=== PATIENT | female | born 1985 | race Two or more races ===

== ENCOUNTER 2020-12-07 22:31 | Emergency (ER) | payer BC, SELFPAY ==
[~2020-12-07] VITALS: Ht 167.6 cm; Wt 60.3 kg
[2020-12-07 22:46] VITALS: BP 138/103
--- NOTE | 2020-12-07 22:56 | NUR ---
PATIENT AMBULATED TO BED 7 WITH A URINE CUP FOR COLLECTION
--- NOTE | 2020-12-07 23:01 | NUR ---
35 YO/F BIB SELF W C/O RLQ PAIN X4 DAYS DULL/STINGING, NON RADIATING, CONSTANT W WORSENING EPISODES TO 6/10, + NAUSEA, +BLOATING REPORTS "STOMACH IS BLOATED LOOKS LIKE I AM 2 MONTHS AND MY STOMACH IS NOT NORMALLY THIS BIG." PT REPORTS PAIN WORSENS W MOVEMENT OR TOUCH. PT DENIES FEVERS, V/D, CONSTIPATION OR URINARY PROBLEMS. PT TOOK 60 ML OF PEPTO @ 1030 TODAY. BOWEL SOUNDS PRESENT, ABDOMEN ROUND, SOFT, TENDER TO TOUCH AT RLQ. PT SITTING IN BED W GOWN ON. VSS. BREATHING EVEN AND UNLABORED. NAD NOTED, WILL CONTINUE TO MONITOR. PMH:TOTAL THYROIDECTOMY, C-SEC 2018, HEMORROID SURGEY 2010, MIGRAINES NKA
--- NOTE | 2020-12-07 23:02 | NUR ---
PT REPORTS SHE DOES NOT WANT ANY PAIN MEDICATION AT THIS TIME.
--- NOTE | 2020-12-07 23:10 | NUR ---
PT AMBULATED TO BATHROOM W STEADY GAIT. PROVIDED URINE SAMPLE, SAMPLE SENT TO LAB.
[2020-12-07 23:54] LABS: BASOPHILS % (AUTO) 0.3 % (0.0-2.0); EOSINOPHILS # (AUTO) 0.2 K/uL (0-0.4); HEMATOCRIT 34.9 % (36-48); HEMOGLOBIN 11.7 g/dL (12.0-16.0); LYMPHOCYTES # (AUTO) 3.1 K/uL (2.5-16.5); LYMPHOCYTES % (AUTO) 26.4 % (20.5-51.1); MEAN CORPUSCULAR HEMOGLOBIN 29 pg (27-31); MEAN CORPUSCULAR HGB CONC 33 g/dL (33-37); MEAN CORPUSCULAR VOLUME 87.6 fL (80-94); MONOCYTES % (AUTO) 8.6 % (1.7-9.3); NEUTROPHILS # (AUTO) 7.4 K/uL (1.8-7.7); NEUTROPHILS % (AUTO) 62.7 % (42.2-75.2); PLATELET COUNT (AUTO) 334 K/uL (140-450); RED BLOOD CELL COUNT(AUTO) 3.98 MIL/uL (4.20-5.40); RED CELL DISTRIBUTION WIDTH 12.5 % (11.6-13.7); WHITE BLOOD COUNT (AUTO) 11.8 K/uL (4.8-10.8)
[2020-12-07 23:54] LABS: APPEARANCE,URINE CLEAR (CLEAR); BILIRUBIN,URINE NEGATIVE (NEGATIVE); BLOOD, URINE 1+ (NEGATIVE); COLOR,URINE YELLOW (YELLOW); LEUKOCYTE ESTERASE ,URINE NEGATIVE (NEGATIVE); NITRITE, URINE NEGATIVE (NEGATIVE); PH,URINE 6.5 (5.0-9.0); UGLUCOSE NEGATIVE (NEGATIVE)
--- NOTE | 2020-12-07 23:54 | NUR ---
PT REFUSED ZOFRAN OR MORPHINE AT THIS TIME. PT WILL CONTACT NURSE IF PT WANTS THE MEDICATION AT ANOTHER TIME.
[2020-12-07] MEDS: NACL 0.9% 1,000 ML IV SCH (23:58)
[2020-12-07] MEDS: MORPHINE SULFATE 2 MG/ML SYR IVP ONE (23:59)
[2020-12-07] MEDS: ONDANSETRON 4 MG/2 ML VIAL IVP ONE (23:59)
[2020-12-07] MEDS: NACL 0.9% 1,000 ML IV ONE (23:59)
[2020-12-08 00:09] LABS: ALBUMIN 3.9 g/dL (3.4-5.0); CARBON DIOXIDE 25.7 mmol/L (21-32); CREATININE 0.6 mg/dL (0.6-1.3); POTASSIUM 3.7 mmol/L (3.5-5.1); TOTAL BILIRUBIN 0.3 mg/dL (0.0-1.0)
[2020-12-08 00:13] LABS: RBC,URINE 0-5 /HPF (0-5); WBC,URINE 0-5 /HPF (0-5)
--- NOTE | 2020-12-08 00:41 | NUR ---
PT TAKEN TO CT
--- NOTE | 2020-12-08 00:50 | NUR ---
PT AMBULATED TO BATHROOM W STEADY GAIT.
--- NOTE | 2020-12-08 00:50 | NUR ---
PT RETURN FROM CT.
[2020-12-08] MEDS ORDERED: PIPERACILLIN/TAZOBACTAM 3.375 GM VIAL IV ONE (02:16)
[2020-12-08] MEDS: PIPERACILLIN/TAZOBACTAM 3.375 GM in DEXTROSE 5% 50 ML IV ONE (02:39)
[2020-12-08] MEDS ORDERED: AMIT10TA36 PO (02:48)
[2020-12-08] MEDS ORDERED: SYN.075 PO (02:48)
[2020-12-08] MEDS ORDERED: IMI50 PO (02:48)
--- NOTE | 2020-12-08 02:59 | NUR ---
PT LAYING IN BED LOCKED IN LOWEST POSITION W X1 SIDERAIL UP. PT USING HER PHONE. NO C/O PAIN OR NAUSEA. BREATHING EVEN AND UNLABORED. VSS ON MONITOR. NAD NOTED, WILL CONTINUE TO MONITOR.
--- NOTE | 2020-12-08 04:12 | NUR ---
DIANE SAMPLE COLLECTED FROM PT NARES AND HANDED TO [facility] [employer]EL[employer].
--- NOTE | 2020-12-08 04:23 | NUR ---
PT AMBULATED TO BATHROOM W STEADY GAIT. DENIES ANY PAIN.
--- NOTE | 2020-12-08 05:12 | NUR ---
Sharon pena in [facility] - 12/08/20 at 0545 by ROSE MARY Pt report given to CHAY CHOW . Transfer of care at this time.
--- NOTE | 2020-12-08 05:12 | NUR ---
Pt report given to CHAY CHOW from [facility]. Transfer of care at this time.
--- NOTE | 2020-12-08 06:18 | NUR ---
PT APPEARS TO BE RESTING W EYES CLOSED BLANKET ON, IN SUPINE POSITION. BED LOCKED IN LOWEST POSITION W X1 SIDERAIL UP. BREATHING EVEN AND UNLABORED. VSS ON MONITOR. NAD NOTED, WILL CONTINUE TO MONITOR.
--- NOTE | 2020-12-08 07:08 | NUR ---
[facility]ORT AT BEDSIDE
[2020-12-08 07:20] VITALS: BP 124/83
--- NOTE | 2020-12-08 07:20 | NUR ---
Patient to be transferred to [facility]. Is being transferred due to HIGHER LEVEL OF CARE. Receiving facility has accepting physician and available space. ER physician has signed transfer form. Patient or responsible democrat has agreed to transfer and signed form. Patient belongings inventoried and will be sent with patient. Copy of nursing notes, lab reports, EKG, Physicians Orders and X-rays to be sent with patient. Report called to CLAUDINE CARTWRIGHT at receiving facility. [facility] ambulance service has been called for transfer. ETA to facility is 10 min.
--- NOTE | 2020-12-08 10:23 | NUR ---
LATE ENTRY- NORMAL SALINE 0.9% IV FLUIDS DISCONTINUED AT 0720.
== END 2020-12-08 07:20 | disposition short-term general hospital (02) ==
LOC: MED 22:31
DX: K59.00 Constipation, unspecified (principal); K51.40 Inflammatory polyps of colon without complications; N39.0 Urinary tract infection, site not specified; G43.909 Migraine, unspecified, not intractable, without status migrainosus; Z20.822 Contact with and (suspected) exposure to COVID-19
CPT/HCPCS: 36415; 74176; 80053; 81001; 83605; 83690; 84703; 85025; 87040; 87086; 87426; 96361; 96365; 99285; J2543; J7030